=== PATIENT | female | born 1980 | race Caucasian/White ===

== ENCOUNTER 2019-01-23 10:05 | Observation (INO) ==
[2019-01-23 11:41] LABS: Bilirubin,Urine Negative (Negative); Blood,Urine Negative (Negative); Clarity,Urine Cloudy (Clear); Color,Urine Yellow (Yellow); Glucose,Urine (UA) Normal (Normal); Ketones,Urine Negative (Negative); Leukocyte Esterase,Urine Moderate (Negative); Nitrite,Urine Negative (Negative); PH,Urine 6.5 pH Units (5.0-8.0); Protein,Urine Negative (Neg-Trace); Specific Gravity,Urine 1.021 (1.010-1.025); Urobilinogen,Urine Normal (Normal)
[2019-01-23 11:46] LABS: Bacteria,Urine Few per hpf (None-Few); Hyaline Casts,Urine None Seen per lpf (None-Few); Squamous Epithelial Cell,Urine Many per lpf (None-Few)
[2019-01-23 12:06] LABS: RBC,Urine 0-3 per hpf (0-3)
[2019-01-23 12:08] LABS: Amorphous Sediment,Urine Few (Few)
--- NOTE | 2019-01-23 12:15 | Discharge Summary ---
Date of Encounter: 01/23/19 Time of Encounter: 12:17 - Discharge Diagnosis (1) 35 weeks gestation of Priority: Primary Status: Acute Comments: admitted for observation false labor - Discharge Medications Prescriptions: No Action 19 Tablet 1 tab PO DAILY Home Medications: 19 Tablet 1 tab PO DAILY 09/26/15 [History] Allergies/Adverse Reactions: Allergy/AdvReac Type Severity Reaction Status Date / Time aspirin Allergy Mild See Verified 09/26/15 08:48 Comments Carbinoxamine [From [facility]] Allergy Mild Rash Verified 09/26/15 08:48 Data Procedures and tests throughout hospitalization: Laboratory Tests 01/23/19 01/23/19 10:48 11:48 Ur Specimen Adequacy See below A Urine Color Yellow Urine Clarity Cloudy A Urine pH 6.5 Ur Specific [place] 1.021 Urine Protein Negative Urine Glucose (UA) Normal Urine Ketones Negative Urine Blood Negative Urine Nitrite Negative Urine Bilirubin Negative Urine Urobilinogen Normal Ur Leukocyte Esterase Moderate H Urine Microscopic RBC 0-3 Urine Microscopic WBC 5-15 H Ur Squamous Epith Cells Many H Amorphous Sediment Few Urine Bacteria Few Hyaline Casts None Seen Ur Culture Indicated? YES A Ur Drug Screen Interp See Below Labs on day of discharge: Labs from last 24 hours 01/23/19 01/23/19 11:48 10:48 Ur Specimen Adequacy See below A Urine Color Yellow Urine Clarity Cloudy A Urine pH 6.5 Ur Specific [place] 1.021 Urine Protein Negative Urine Glucose (UA) Normal Urine Ketones Negative Urine Blood Negative Urine Nitrite Negative Urine Bilirubin Negative Urine Urobilinogen Normal Ur Leukocyte Esterase Moderate H Urine Microscopic RBC 0-3 Urine Microscopic WBC 5-15 H Ur Squamous Epith Cells Many H Amorphous Sediment Few Urine Bacteria Few Hyaline Casts None Seen Ur Culture Indicated? YES A Ur Drug Screen Interp See Below Date of admission: 01/23/19 10:05 Primary care physician: Felicia Lin MD Discharging clinician: Mimi Hubbard Anticipated date of discharge: 01/23/19 - Patient Status Disposition: Home, Self-Care Condition: Good Functional capacity at discharge: independent ambulation - Discharge Instructions Follow Up With: Felicia Lin MD [Primary Care Provider] - Brayan Lyon MD [Non-Partnered Physician] - - Diet and Activity Activity: increase activity as tolerated Diet: regular diet Hospital Course QUALITY CONTROL DIRECTOR Hospital course: Patient is a 38 y/o @ 35 weeks gestation presents to labor and delivery with complaints of abdominal pain, headache and some back pain. Patient denies any complications with current . She is AMA and receives care with Dr. Lyon. VSS, no cervical change. Urine culture pending. Time Attestation: Total time spent providing and/or coordinating discharge services: Time Spent: Less than 30 minutes Exam - Constitutional General appearance IM: A&O X 3, pleasant, answers questions appropriately - Respiratory Respiratory exam: Present: CTAB - Cardiovascular Cardiovascular exam IM: Present: RRR, +S1, +S2 - GI/Abdominal GI/Abdominal exam IM: normal bowel sounds - Extremities Exam Extremities exam IM: Present: full ROM, normal capillary refill, normal inspection - Neurological Exam Neurological exam: alert, oriented X3, reflexes normal - Other Additional findings: SVE 1/50/-2, small amount of dark blood noted on exam. FHR 130 bpm moderate variability +15x15 accels no decels noted. Irregular contractions. Cat. 1 tracing. - VTE Reasons for not Prescribing Prophylaxis: Treatment not Indicated - Low risk for VTE
[2019-01-23 12:26] LABS: Amphetamine Screen,Urine Negative ng/mL (Cutoff=1000); Barbiturate Screen,Urine Negative ng/mL (Cutoff=200); Benzodiazepines Screen,Urine Negative ng/mL (Cutoff=200); Cannabinoid Screen,Urine Negative ng/mL (Cutoff = 50); Cocaine Screen,Urine Negative ng/mL (Cutoff= 300); Opiate Screen,Urine Negative ng/mL (Cutoff=300); Phencyclidine Screen,Urine Negative ng/mL (Cutoff=25)
== END 2019-01-23 12:25 | disposition home or self-care (01) ==
LOC: 1NENULAB
PROVIDERS: ADMIT Advanced Practice Midwife; ATTEND Advanced Practice Midwife